=== PATIENT | female | born 1930 ===

== ENCOUNTER 2018-01-02 05:15 | Day surgery (SDC) | payer OTHER ==
[~2018-01-02 05:15] MED LIST: ASA81 MG PO; ATORVASTATIN CA10 MG PO; LOSARTAN POTAS100 MG PO; NAMENDA10 MG PO; ONGLYZA5 MG PO; PROZAC PO; RAZADYNE ER16 MG PO; SYNTHROID75 MCG PO; TOPROL XL25 M1 PO; [UNRECOGNIZED DRUG - OTHER] PO
== END 2018-01-02 12:15 | disposition home or self-care (01) ==
LOC: CIR.AMB 05:15
DX: R15.9 Full incontinence of feces (principal)
CPT/HCPCS: 64581; C1778

== ENCOUNTER 2018-01-16 05:52 | Day surgery (SDC) | payer OTHER | END 2018-01-16 14:45 | disposition home or self-care (01) | LOC: CIR.AMB 05:52 | DX: R15.9 Full incontinence of feces (principal) | CPT/HCPCS: 64590; C1767 ==